=== PATIENT | male | born 1980 | race Hispanic/Latino ===

== ENCOUNTER 2022-11-14 01:07 | Emergency (ER) | payer SELFPAY ==
[2022-11-14] MEDS ORDERED: HYDROCODONE/APAP 7.5/325 MG TAB ONE (02:17)
--- NOTE | 2022-11-14 02:46 | ER ---
Nurse's Notes [facility] Name: Torito Motley Age: 42 yrs Sex: Male : 1980 Arrival Date: 11/14/2022 Time: 01:07 Bed Treatment Private MD: Diagnosis: Displaced fracture of distal phalanx of left great toe Presentation: 11/14 01:23 Chief complaint: Patient states: left great toe pain of 10 with contusion and pf1 swelling,onset 1100 on Saturday at the gym. Patient stated a 45lb weight fell off the bar, landed onto the floor, then fell onto the left great toe. Coronavirus screen: Vaccine status: Patient reports being unvaccinated. Client denies travel out of the [place] in the last 14 days. At this time, the client does not indicate any symptoms associated with coronavirus-19. Ebola Screen: Patient negative for fever greater than or equal to 101.5 degrees Fahrenheit, and additional compatible Ebola Virus Disease symptoms. Initial Sepsis Screen: Does the patient meet any 2 criteria? No. Patient's initial sepsis screen is negative. Does the patient have a suspected source of infection? No. Patient's initial sepsis screen is negative. Risk Assessment: Do you want to hurt yourself or someone else? Patient reports no desire to harm self or others. 01:23 Method Of Arrival: Wheelchair pf1 01:23 Acuity: SOLIS 4 pf1 Triage Assessment: 02:05 General: see assessment. pf1 Historical: - Allergies: 01:29 No Known Allergies; pf1 - PMHx: 01:29 None; pf1 - PSHx: 01:29 None; pf1 - Immunization history:: Adult Immunizations up to date, Last tetanus immunization: < 10 years ago Flu vaccine is not up to date. - Social history:: Smoking status: Patient denies any tobacco usage or history of. Patient/guardian denies using alcohol, street drugs. Screenin:05 [facility] ED Fall Risk Assessment (Adult) History of falling in the last 3 months, cg including since admission No falls in past 3 months (0 pts) Confusion or Disorientation No (0 pts) Intoxicated or Sedated No (0 pts) Impaired Gait No (0 pts) Mobility Assist Device Used No (0 pt) Altered Elimination No (0 pt) Score/Fall Risk Level 0 - 2 = Low Risk Oriented to surroundings, Maintained a safe environment, Educated pt \T\ family on fall prevention, incl call for assistance when getting out of bed, Assessed \T\ reinforced patient's understanding of fall precautions, Provided non-skid footwear, Hourly rounding (assess needs \T\ fall precautionary measures) done, Used ambulatory aids as needed (educated on \T\ assisted with), Used gait belt as appropriate. 02:05 Abuse screen: Denies threats or abuse. Nutritional screening: No deficits noted. cg Tuberculosis screening: No symptoms or risk factors identified. Assessment: 02:05 General: Appears in no apparent distress. uncomfortable, well groomed, well developed, cg Behavior is calm, cooperative, appropriate for age, quiet. 02:05 Pain: Complains of pain in left foot of great toe Pain currently is 10 out of 10 on a cg pain scale. Neuro: No deficits noted. Level of Consciousness is awake, alert, obeys commands, Oriented to person, place, time, situation. Cardiovascular: No deficits noted. Capillary refill < 3 seconds Patient's skin is warm and dry. Respiratory: No deficits noted. Airway is patent Respiratory effort is even, unlabored, Respiratory pattern is regular, symmetrical. GI: No deficits noted. No signs and/or symptoms were reported involving the gastrointestinal system. : No deficits noted. No signs and/or symptoms were reported regarding the genitourinary system. EENT: No deficits noted. No signs and/or symptoms were reported regarding the EENT system. Derm: No deficits noted. No signs and/or symptoms reported regarding the dermatologic system. Musculoskeletal: Reports pain in left foot of great toe. Vital Signs: 01:23 BP 121 / 77; Pulse 73; Resp 16; Temp 97.9; Pulse Ox 97% on R/A; Weight 99.79 kg; Height pf1 6 ft. 0 in. ; Pain 10/10; 03:00 BP 118 / 75; Pulse 70; Resp 16; Pulse Ox 100% on R/A; Pain 7/10; pf1 01:23 Body Mass Index 29.84 (99.79 kg, 182.88 cm) pf1 01:23 Pain Scale: Adult pf1 03:00 Pain Scale: Adult pf1 ED Course: 01:10 Patient arrived in ED. [id number] 01:19 Adalberto Boo PA is PHCP. cp 01:19 Aniceto Grissom MD is Attending Physician. cp 01:29 Triage completed. pf1 02:05 Patient has correct armband on for positive identification. Bed in low position. Call cg light in reach. 02:05 Arm band placed on right wrist. pf1 02:11 XRAY Foot LEFT 3 View In Process Unspecified. EDMS 02:40 Tim Montana MD is Referral Physician. cp 03:00 Provided Education on: medication administration. pf1 03:00 Ortho shoe applied to left foot. walking boot. cg 03:00 No provider procedures requiring assistance completed. cg 03:00 Patient did not have IV access during this emergency room visit. cg Administered Medications: 02:04 Not Given (patient took MANAGER STERILE PROCESSING): Ibuprofen PO 800 mg PO once pf1 02:05 Drug: Hydrocodone-Acetaminophen PO (7.5 mg-325 mg) 1 tabs Route: PO; pf1 02:55 Follow up: Response: No adverse reaction; Marked relief of symptoms pf1 02:45 Drug: morphine IM 4 mg Route: IM; Site: right deltoid; pf1 03:10 Follow up: Response: No adverse reaction; Marked relief of symptoms; Pain is decreased; cg RASS: Alert and Calm (0) Medication: 03:00 VIS not applicable for this client. pf1 Outcome: 02:45 Discharge ordered by MD. cp 03:09 Discharged to home via wheelchair, with crutches, with family. pf1 03:09 Condition: improved 03:09 Discharge instructions given to patient, family, Instructed on discharge instructions, follow up and referral plans. Demonstrated understanding of instructions, follow-up care, medications, wound care, Prescriptions given X 2. 03:10 Patient left the ED. pf1 Signatures: Dispatcher [employer] EDUT Adalberto Boo PA PA cp Garcia, Cindy, ROSALIO RN Antonette Blue Pamala RN RN pf1 Corrections: (The following items were deleted from the chart) 07:37 07:36 Arm band placed on cg pf1
--- NOTE | 2022-11-14 02:46 | EDPHYS ---
Physician Documentation [facility] Name: Torito Motley Age: 42 yrs Sex: Male : 1980 Arrival Date: 11/14/2022 Time: 01:07 Bed Treatment Private MD: ED Physician Aniceto Grissom HPI: 11/14 01:50 This 42 yrs old Male presents to ER via Wheelchair with complaints of Toe cp Injury. 01:50 The patient presents with an injury. The complaints affect the left foot. Context: cp dropped 45 lb weight onto foot yesterday. 01:50 Associated signs and symptoms: The patient has no apparent associated signs or symptoms.cp Historical: - Allergies: 01:29 No Known Allergies; pf1 - PMHx: 01:29 None; pf1 - PSHx: 01:29 None; pf1 - Immunization history:: Adult Immunizations up to date, Last tetanus immunization: < 10 years ago Flu vaccine is not up to date. - Social history:: Smoking status: Patient denies any tobacco usage or history of. Patient/guardian denies using alcohol, street drugs. ROS: 01:55 MS/extremity: Positive for injury or acute deformity, ecchymosis, pain, swelling, cp tenderness, of the left great toe, Negative for paresthesias. 01:55 Neck: Negative for pain with movement, pain at rest, stiffness. cp 01:55 Back: Negative for pain at rest, pain with movement. 01:55 Neuro: Negative for numbness. 01:55 All other systems are negative. Exam: 02:00 Constitutional: The patient appears in no acute distress, alert, awake, well developed, cp well nourished, uncomfortable. 02:00 Head/Face: Normocephalic, atraumatic. cp 02:00 Neck: ROM/movement: is normal, is supple, without pain, no range of motions limitations. 02:00 Chest/axilla: Inspection: normal. 02:00 Cardiovascular: Rate: normal. 02:00 Respiratory: the patient does not display signs of respiratory distress, Respirations: normal, no use of accessory muscles, no retractions. 02:00 Back: pain, is absent, ROM is normal. 02:00 Musculoskeletal/extremity: Extremities: grossly normal except: noted in the left foot: marked pain, swelling, ecchymosis of left great toe, Pulses: noted to be 2+ in the left dorsalis pedis artery, the left great toe Severe pain noted. Nails: intact of left great toe with no signs of hematoma. 02:00 Skin: injury, abrasion(s), small abrasion noted, of the dorsum of distal phalanx left great toe. Vital Signs: 01:23 BP 121 / 77; Pulse 73; Resp 16; Temp 97.9; Pulse Ox 97% on R/A; Weight 99.79 kg; Height pf1 6 ft. 0 in. ; Pain 10/10; 03:00 BP 118 / 75; Pulse 70; Resp 16; Pulse Ox 100% on R/A; Pain 7/10; pf1 01:23 Body Mass Index 29.84 (99.79 kg, 182.88 cm) pf1 01:23 Pain Scale: Adult pf1 03:00 Pain Scale: Adult pf1 MDM: 01:42 Patient medically screened. cp 02:45 Data reviewed: vital signs, nurses notes, radiologic studies, plain films. cp 02:45 Differential diagnosis: fracture, contusion. I considered the following discharge cp prescriptions or medication management in the emergency department Medications were administered in the Emergency Department. See MAR. Independent interpretation of the following test(s) in the Emergency Department X-Ray: My interpretation is images of left foot show comminuted fracture distal phalanx left great toe. Counseling: I had a detailed discussion with the patient and/or guardian regarding: the historical points, exam findings, and any diagnostic results supporting the discharge/admit diagnosis, radiology results, the need for outpatient follow up, a orthopedic surgeon, to return to the emergency department if symptoms worsen or persist or if there are any questions or concerns that arise at home. Response to treatment: the patient's symptoms have markedly improved after treatment, and as a result, I will discharge patient. 11/14 01:43 Order name: XRAY Foot LEFT 3 View cp 11/14 02:40 Order name: Walking boot; Complete Time: 02:55 cp 11/14 02:40 Order name: Crutches; Complete Time: 02:55 cp 11/14 02:40 Order name: Wound dressing; Complete Time: 02:55 cp Administered Medications: 02:04 Not Given (patient took WELL TREATMENT OFFSIDER): Ibuprofen PO 800 mg PO once pf1 02:05 Drug: Hydrocodone-Acetaminophen PO (7.5 mg-325 mg) 1 tabs Route: PO; pf1 02:55 Follow up: Response: No adverse reaction; Marked relief of symptoms pf1 02:45 Drug: morphine IM 4 mg Route: IM; Site: right deltoid; pf1 03:10 Follow up: Response: No adverse reaction; Marked relief of symptoms; Pain is decreased; cg RASS: Alert and Calm (0) Disposition Summary: 11/14/22 02:45 Discharge Ordered Location: Home cp Problem: new cp Symptoms: have improved cp Condition: Stable cp Diagnosis - Displaced fracture of distal phalanx of left great toe cp Followup: cp - With: Tim Montana MD - When: 2 - 3 days - Reason: Recheck today's complaints Discharge Instructions: - Discharge Summary Sheet cp - Toe Fracture cp Forms: - Medication Reconciliation Form cp - Thank You Letter cp - Antibiotic Education cp - Prescription Opioid Use cp - Patient Portal Instructions cp Prescriptions: - acetaminophen-codeine 300-30 mg Oral tablet - take 2 tablet by ORAL route every 8-10 hours as needed for pain; 16 tablet; cp Refills: 0, Product Selection Permitted - Ibuprofen 800 mg Oral Tablet - take 1 tablet by ORAL route every 8 hours As needed take with food; 30 tablet; cp Refills: 0, Product Selection Permitted Signatures: Dispatcher [employer] Adalberto Marshall PA PA cp Finley, Pamala RN RN pf1 Neha Huerta RN cg
[2022-11-14] MEDS ORDERED: MORPHINE 4 MG/ML SYR ONE (02:50)
[2022-11-14 03:14] VITALS: BP 121/77; TEMP 97.9; O2SAT 97
--- NOTE | 2022-11-14 13:47 | RAD REPORT ---
EXAM DESCRIPTION: RAD - Foot Left 3 View - 11/14/2022 2:09 am CLINICAL HISTORY: 42 years Male great toe injury;Pain TECHNIQUE: Three x-ray views of the left foot were performed on 11/14/2022 at 1:58 AM. COMPARISON: None FINDINGS: There is a minimally displaced comminuted fracture through the distal phalanx of the first digit of the left foot. There is surrounding soft tissue swelling. The fracture appears to extend to the articular surface. No additional acute fractures are identified. There is no evidence of disloca tion. No arthritic or degenerative changes are identified. There are no lytic or sclerotic bone lesio ns. Bone mineralization is normal. IMPRESSION: Minimally displaced comminuted fracture through the distal phalanx of the first digit of the left foot with surrounding soft tissue swelling. Electronically signed by: Frieda Bustillo DO 11/14/2022 2:48 AM CDT Due to temporary technical issues with the PACS/Fluency reporting system, reports are being signed by the in house radiologist without review as a courtesy to ensure prompt reporting. The interpreting r adiologist is fully responsible for the content of the report.
== END 2022-11-14 03:10 | disposition home or self-care (01) ==
LOC: ER 01:07
DX: S92.422A Displaced fracture of distal phalanx of left great toe, initial encounter for closed fracture (principal)